=== PATIENT | female | born 1980 | race Caucasian/White ===

== ENCOUNTER 2016-07-17 13:14 | Emergency (ER) | payer OTHER ==
[~2016-07-17 13:14] MED LIST: AUGMENTIN 875-1 EACH PO; BACTRIM DS TAB1 EACH PO; NICODERM 7MG PAT1 EA TOP
== END 2016-07-17 14:21 | disposition home or self-care (01) ==
LOC: ER 13:14
DX: L27.0 Generalized skin eruption due to drugs and medicaments taken internally (principal); T40.4X5A Adverse effect of other synthetic narcotics, initial encounter; Z98.51 Tubal ligation status; F17.210 Nicotine dependence, cigarettes, uncomplicated; Z88.1 Allergy status to other antibiotic agents
CPT/HCPCS: 96372; 99282-25